=== PATIENT | female | born 1975 | race Caucasian/White ===

== ENCOUNTER 2020-04-08 23:35 | Emergency (ER) | payer MEDICAID ==
[~2020-04-08] VITALS: Ht 167.6 cm; Wt 116.1 kg
[2020-04-08 23:59] VITALS: Ht 167.6 cm; Wt 116.1 kg
[2020-04-09 01:37] VITALS: BP 135/79
== END 2020-04-09 01:38 | disposition home or self-care (01) ==
LOC: ED 23:35
DX: K02.9 Dental caries, unspecified (principal)